=== PATIENT | male | born 1990 | race Caucasian/White ===

== ENCOUNTER 2016-09-18 11:22 | Inpatient (IN) | payer OTHER ==
[~2016-09-18] VITALS: Ht 177.8 cm; Wt 102.0 kg
[2016-09-18 11:26] VITALS: BP 147/75; PULSE 92; RESP 16; TEMP 99.6; O2SAT 97
[2016-09-18] MEDS ORDERED: SODIUM CHLORIDE 0.9% FLUSH 10 ML FLUSH IV FLUSH PRN ×2 (11:45→18:15)
--- NOTE | 2016-09-18 11:53 | PD ---
HPI Chief Complaint: GI Complaint Time Seen by Provider: 11:32 Travel History International Travel<30 days: No Contact w/Intl Traveler<30days: No Traveled to known affect area: No History of Present Illness HPI This patient complains of abdominal pain. Duration is 36 hours. Severity is moderate. Location is right lower quadrant. He denies fever or vomiting or diarrhea. He ate yesterday without change in symptoms. He has no alleviating factors. He has no abdominal surgeries PFSH Past Medical History ADHD: Yes Diminished Hearing: No Immunizations Current: No Tetanus Vaccination: Unknown Influenza Vaccination: No Social History Alcohol Use: Yes (3-4 days a week) Tobacco Use: No Substance Use: No Allergies-Medications (Allergen,Severity, Reaction): Coded Allergies: No Known Allergies (Unverified , 09/18/16) Reported Meds & Prescriptions Reported Meds & Active Scripts Active No Active Prescriptions or Reported Medications Review of Systems General / Constitutional: No: Fever Eyes: No: Visual changes HENT: No: Headaches Cardiovascular: No: Chest Pain or Discomfort Respiratory: No: Shortness of Breath Gastrointestinal: Positive: Abdominal Pain Genitourinary: No: Dysuria Musculoskeletal: No: Pain Skin: No Rash Neurologic: No: Weakness Psychiatric: No: Depression Endocrine: No: Polydipsia Hematologic/Lymphatic: No: Easy Bruising Physical Exam Narrative GENERAL: Well-nourished, well-developed patient with abdominal pain. SKIN: Focused skin assessment reveals no rash and nodules. Skin is Warm and dry. HEAD: Atraumatic. Normocephalic. EYES: Pupils equal and round. No scleral icterus. No injection or drainage. ENT: No nasal bleeding or discharge. Mucous membranes pink and moist. NECK: Trachea midline. No JVD. CARDIOVASCULAR: Regular rate and rhythm. No murmur appreciated. RESPIRATORY: No accessory muscle use. Clear to auscultation. Breath sounds equal bilaterally. GASTROINTESTINAL: Abdomen soft, right lower quadrant is tender but no rebound or guarding, nondistended. Hepatic and splenic margins not palpable. No inguinal hernia MUSCULOSKELETAL: No obvious deformities. No clubbing. No cyanosis. No edema. NEUROLOGICAL: Awake and alert. No obvious cranial nerve deficits. Motor grossly within normal limits. Normal speech. PSYCHIATRIC: Appropriate mood and affect; insight and judgment normal. Data Data Last Documented VS Vital Signs Date Time Temp Pulse Resp B/P Pulse Ox O2 Delivery O2 Flow Rate FiO2 5/8/17 11:26 99.6 92 16 147/75 97 Orders Basic Metabolic Panel (Bmp) (09/18/16 11:36) Complete Blood Count With Diff (09/18/16 11:36) Prothrombin Time / Inr (Pt) (09/18/16 11:36) Act Partial Throm Time (Ptt) (09/18/16 11:36) Urinalysis - C+S If Indicated (09/18/16 11:36) Ct Abd/Pel W Iv Contrast(Rout) (09/18/16 11:36) Iv Access Insert/Monitor (09/18/16 11:36) NPO (09/18/16 11:36) Sodium Chloride 0.9% Flush (Ns Flush) (09/18/16 11:45) Iohexol 350 Inj (Omnipaque 350 Inj) (09/18/16 12:00) Ampicillin-Sulbactam Inj (Unasyn Inj) (09/18/16 12:30) Labs Laboratory Tests Test 09/18/16 11:45 White Blood Count 14.6 TH/MM3 Red Blood Count 4.67 MIL/MM3 Hemoglobin 14.8 GM/DL Hematocrit 43.4 % Mean Corpuscular Volume 93.0 FL Mean Corpuscular Hemoglobin 31.8 PG Mean Corpuscular Hemoglobin 34.2 % Concent Red Cell Distribution Width 11.7 % Platelet Count 218 TH/MM3 Mean Platelet Volume 7.5 FL Neutrophils (%) (Auto) 74.6 % Lymphocytes (%) (Auto) 9.5 % Monocytes (%) (Auto) 6.6 % Eosinophils (%) (Auto) 1.7 % Basophils (%) (Auto) 7.6 % Neutrophils # (Auto) 10.9 TH/MM3 Lymphocytes # (Auto) 1.4 TH/MM3 Monocytes # (Auto) 1.0 TH/MM3 Eosinophils # (Auto) 0.2 TH/MM3 Basophils # (Auto) 1.1 TH/MM3 CBC Comment AUTO DIFF Differential Total Cells 100 Counted Neutrophils % (Manual) 87 % Lymphocytes % 4 % Monocytes % 8 % Eosinophils % 1 % Neutrophils # (Manual) 12.7 TH/MM3 Differential Comment FINAL DIFF MANUAL Prothrombin Time 11.0 SEC Prothromb Time International 1.0 RATIO Ratio Activated Partial 29.6 SEC Thromboplast Time Sodium Level 140 MEQ/L Potassium Level 3.6 MEQ/L Chloride Level 104 MEQ/L Carbon Dioxide Level 27.4 MEQ/L Anion Gap 9 MEQ/L Blood Urea Nitrogen 10 MG/DL Creatinine 1.20 MG/DL Estimat Glomerular Filtration 72 ML/MIN Rate Random Glucose 162 MG/DL Calcium Level 8.6 MG/DL MDM Medical Decision Making Medical Screen Exam Complete: Yes Emergency Medical Condition: Yes Medical Record Reviewed: Yes Differential Diagnosis Appendicitis, colitis, cholecystitis Narrative Course I have reviewed the patient's electronic medical record. IV placed CBC shows some leukocytosis of 14.6 thousand Metabolic profile is normal Coagulation studies are normal CT of abdomen and pelvis shows appendicitis with perforation but no abscess formation I gave him 3 g IV Unasyn I discussed with general surgeon Dr. De Oliveira who requests he be transferred up to same day surgery Diagnosis Primary Impression: Acute appendicitis with rupture Admitting Information Admitting Physician Requests: Admit Scripts No Active Prescriptions or Reported Meds Shivam Kelley MD September 18, 2016 11:53
[2016-09-18 11:55] LABS: AUTOMATED NEUTROPHIL # 10.9 TH/MM3 (1.8-7.7); BASOPHIL # 1.1 TH/MM3 (0-0.2); BASOPHIL % 7.6 % (0.0-2.0); EOSINOPHIL # 0.2 TH/MM3 (0-0.4); EOSINOPHIL % 1.7 % (0.0-4.0); HEMATOCRIT 43.4 % (39.0-51.0); LYMPH % 9.5 % (9.0-44.0); LYMPHOCYTE # 1.4 TH/MM3 (1.0-4.8); MEAN CORPUSCULAR HEMOGLOBIN 31.8 PG (27.0-34.0); MEAN CORPUSCULAR HGB CONC 34.2 % (32.0-36.0); MONO % 6.6 % (0.0-8.0); NEUT % 74.6 % (16.0-70.0); PLATELET COUNT 218 TH/MM3 (150-450); RED BLOOD COUNT 4.67 MIL/MM3 (4.50-5.90); RED CELL DISTRIBUTION WIDTH 11.7 % (11.6-17.2); WHITE BLOOD COUNT 14.6 TH/MM3 (4.0-11.0)
[2016-09-18 11:56] LABS: HEMO FLAGS AUTO DIFF
[2016-09-18] MEDS ORDERED: IOHEXOL 350 MG/ML 10 ML VIAL (for RAD DIAG) IV ONE (12:00)
[2016-09-18 12:07] LABS: POTASSIUM 3.6 MEQ/L (3.5-5.1)
[2016-09-18 12:10] LABS: BICARBONATE 27.4 MEQ/L (21.0-32.0)
[2016-09-18 12:11] LABS: APTT (PATIENT) 29.6 SEC (24.3-30.1)
[2016-09-18 12:16] LABS: EOSINOPHILS 1 % (0-4); NEUTROPHIL # MANUAL DIFF 12.7 TH/MM3 (1.8-7.7); POLYS (SEG NEUTROPHILS) 87 % (16-70); SCAN/DIFF FINAL DIFF MANUAL; WBC DIFF SAMPLE 100
--- NOTE | 2016-09-18 12:17 | RADHPO ---
EXAM DATE/TIME: 09/18/2016 11:46 [facility] COMPARISON: CT ABDOMEN & PELVIS W/O CONTRAST, October 27, 2015, 20:29. INDICATIONS : Upper abdominal pain radiating to right lower quadrant. IV CONTRAST: 95 cc Omnipaque 350 (iohexol) IV ORAL CONTRAST: No oral contrast ingested. RADIATION DOSE: 25.09 CTDIvol (mGy) MEDICAL HISTORY : None SURGICAL HISTORY : None. ENCOUNTER: Initial ACUITY: 2 days PAIN SCALE: 5/10 LOCATION: Right lower quadrant TECHNIQUE: Volumetric scanning of the abdomen and pelvis was performed. Using automated exposure control and ad justment of the mA and/or kV according to patient size, radiation dose was kept as low as reasonably achievable to obtain optimal diagnostic quality images. FINDINGS: The lung base is are clear. There is no pericardial effusion The liver, spleen and pancreas unremarkable. The adrenals and kidneys appear normal There are inflammatory changes in the right lower quadrant consistent with appendicitis with perforat ion. There is no defined abscess as yet. The pelvic contents are unremarkable. CONCLUSION: Right is consistent with appendicitis and perforation without abscess.. Олег Vargas MD FACR on September 18, 2016 at 12:13 Board Certified Radiologist. This report was verified electronically.
[2016-09-18] MEDS ORDERED: AMPICILLIN-SULBACTAM INJ 3 GM in SODIUM CHLORIDE 0.9% INJ 100 ML IV ONE (12:30)
[2016-09-18 13:09] VITALS: BP 140/70; PULSE 90; RESP 18; O2SAT 97
[2016-09-18] MEDS ORDERED: BUPIVACAINE/EPINEPHRINE 0.5% PF 30 ML VIAL ONE (13:24)
[2016-09-18] MEDS ORDERED: CHLORHEXIDINE GLUCONATE 2 % 1 PACK (2 CLOTHS) TOPICAL PRN (14:15)
[2016-09-18] MEDS ORDERED: METOPROLOL TARTRATE 25 MG TAB PO PRN (14:15)
[2016-09-18] MEDS ORDERED: POVIDONE IODINE 5% (ANTISEPSIS KIT) 4 APPLICATIONS EACH NARE PRN (14:15)
[2016-09-18] MEDS ORDERED: LACTATED RINGER'S 1000 ML IV PRN (14:15)
[2016-09-18] MEDS ORDERED: SODIUM CHLORID 0.9% 500 ML IV PRN (14:15)
[2016-09-18] MEDS ORDERED: INSULIN HUMAN REGULAR 1,000 UNITS/10 ML VIAL SQ PRN (14:15)
[2016-09-18] MEDS ORDERED: PROPOFOL 200 MG/20 ML AMP IV ONE (14:22)
[2016-09-18] MEDS ORDERED: ONDANSETRON HCL 4 MG/2 ML VIAL IV PUSH ONE (14:22)
[2016-09-18] MEDS ORDERED: MORPHINE SULFATE 4 MG/ML INJ ONE (15:43)
[2016-09-18] MEDS ORDERED: MORPHINE SULFATE 4 MG/ML INJ IV ONE (16:00)
[2016-09-18 16:13] LABS: BLOOD, URINE NEG (NEG); GLUCOSE,URINE NEG (NEG); KETONE, URINE NEG (NEG); METHOD OF COLLECTION CLEAN CATCH; NITRITE,URINE NEG (NEG); PH, URINE 6.5 (5.0-8.5); URINE COLOR YELLOW (YELLW/STRAW)
[2016-09-18] MEDS ORDERED: fentaNYL CITRATE 250 MCG/5 ML AMP ONE ×3 (16:20→16:57)
[2016-09-18 16:28] LABS: RBC, URINE 0-3 /hpf (0-3); WBC, URINE 0-2 /hpf (0-5)
[2016-09-18 16:29] LABS: COMMENT (UR) CULT NOT INDICATED; CULTURE IF INDICATED CULT NOT INDICATED
[2016-09-18] MEDS ORDERED: ACETAMINOPHEN 1000 MG/100 ML VIAL IV ONE (16:56)
[2016-09-18] MEDS ORDERED: SUGAMMADEX SODIUM 200 MG/2 ML VIAL IV PUSH ONE ×2 (16:57)
[2016-09-18] MEDS: SODIUM CHLOR 0.9% 1000 ML INJ 1,000 ML IV SCH (18:14)
[2016-09-18] MEDS ORDERED: DO NOT ADM ANY ANTICOAGULANT DRUGS PRN (18:15)
[2016-09-18] MEDS ORDERED: ONDANSETRON HCL 4 MG/2 ML VIAL IV PRN (18:15)
[2016-09-18] MEDS ORDERED: oxyCODONE/ACETAMINOPHEN 5 MG/325 MG TAB PO PRN (18:15)
[2016-09-18] MEDS ORDERED: Post-op Orders (for Pharmacy) MISC XX ONE (18:15)
[2016-09-18] MEDS ORDERED: MAGNESIUM HYDROXIDE SUSP 30 ML CUP PO PRN (18:15)
[2016-09-18] MEDS ORDERED: AMPICILLIN-SULBACTAM INJ 3 GM VIAL IM SCH (18:30)
[2016-09-18] MEDS ORDERED: *morphine SULFATE 8 MG/ML PERIprocedure ONLY ONE (18:36)
[2016-09-18] MEDS: AMPICILLIN/SULBAC 3 GM/NS 100 ML IV SCH ×2 (18:57)
[2016-09-18 20:00] VITALS: BP 115/57; PULSE 75; RESP 20; TEMP 97.8; O2SAT 96
[2016-09-18] MEDS ORDERED: SODIUM CHLORIDE 0.9% FLUSH 10 ML FLUSH IV FLUSH SCH (21:00)
[2016-09-19] VITALS: BP 118/60; PULSE 78; RESP 20; TEMP 98; O2SAT 97
[2016-09-19] MEDS: AMPICILLIN/SULBAC 3 GM/NS 100 ML IV SCH ×4 (01:29→08:00)
[2016-09-19] MEDS: oxyCODONE/ACETAMINOPHEN 5 MG/325 MG TAB PO PRN ×2 (01:32→06:01)
[2016-09-19 04:00] VITALS: BP 110/55; PULSE 61; RESP 20; TEMP 97.8; O2SAT 95
[2016-09-19] MEDS: SODIUM CHLOR 0.9% 1000 ML INJ 1,000 ML IV SCH (04:14)
[2016-09-19 05:39] LABS: AUTOMATED NEUTROPHIL # 12.3 TH/MM3 (1.8-7.7); BASOPHIL # 0.1 TH/MM3 (0-0.2); BASOPHIL % 0.4 % (0.0-2.0); EOSINOPHIL % 0.1 % (0.0-4.0); HEMATOCRIT 41.4 % (39.0-51.0); HEMO FLAGS DIFF FINAL; LYMPH % 5.6 % (9.0-44.0); LYMPHOCYTE # 0.8 TH/MM3 (1.0-4.8); MEAN CORPUSCULAR HEMOGLOBIN 31.3 PG (27.0-34.0); MEAN CORPUSCULAR HGB CONC 32.9 % (32.0-36.0); NEUT % 86.9 % (16.0-70.0); PLATELET COUNT 233 TH/MM3 (150-450); RED BLOOD COUNT 4.36 MIL/MM3 (4.50-5.90); RED CELL DISTRIBUTION WIDTH 12.6 % (11.6-17.2); WHITE BLOOD COUNT 14.2 TH/MM3 (4.0-11.0)
[2016-09-19 08:00] VITALS: BP 99/43; PULSE 67; RESP 18; TEMP 95.4; O2SAT 97
--- NOTE | 2016-09-19 11:13 | HHI.PR ---
Subjective Subjective Notes 26yo male POD#1 laparoscopic appendectomy. Sitting up in bed in no acute distress. Tolerating fluids Objective Vitals/I&O Vital Signs Date Time Temp Pulse Resp B/P Pulse Ox O2 Delivery O2 Flow Rate FiO2 09/19/16 08:00 95.4 67 18 99/43 97 09/19/16 04:00 97.8 61 20 110/55 95 09/19/16 00:00 98.0 78 20 118/60 97 09/18/16 20:00 97.8 75 20 115/57 96 09/18/16 18:44 97.8 81 14 106/63 98 Nasal Cannula 2 09/18/16 18:30 79 14 103/56 97 Nasal Cannula 2 09/18/16 18:15 82 14 98/57 97 Nasal Cannula 2 09/18/16 18:00 104 14 134/57 95 Nasal Cannula 2 09/18/16 17:53 97.8 99 14 139/65 97 Nasal Cannula 2 09/18/16 14:06 100.0 89 20 122/66 96 09/18/16 13:09 90 18 140/70 97 Room Air 09/18/16 11:26 99.6 92 16 147/75 97 Vital Signs Date Time Temp Pulse Resp B/P Pulse Ox O2 Delivery O2 Flow Rate FiO2 09/19/16 08:00 95.4 67 18 99/43 97 09/18/16 18:44 Nasal Cannula 2 Labs Laboratory Tests Test 09/18/16 09/18/16 09/19/16 11:45 13:05 04:27 White Blood Count 14.6 14.2 Red Blood Count 4.67 4.36 Hemoglobin 14.8 13.6 Hematocrit 43.4 41.4 Mean Corpuscular Volume 93.0 95.0 Mean Corpuscular Hemoglobin 31.8 31.3 Mean Corpuscular Hemoglobin 34.2 32.9 Concent Red Cell Distribution Width 11.7 12.6 Platelet Count 218 233 Mean Platelet Volume 7.5 8.1 Neutrophils (%) (Auto) 74.6 86.9 Lymphocytes (%) (Auto) 9.5 5.6 Monocytes (%) (Auto) 6.6 7.0 Eosinophils (%) (Auto) 1.7 0.1 Basophils (%) (Auto) 7.6 0.4 Neutrophils # (Auto) 10.9 12.3 Lymphocytes # (Auto) 1.4 0.8 Monocytes # (Auto) 1.0 1.0 Eosinophils # (Auto) 0.2 0.0 Basophils # (Auto) 1.1 0.1 CBC Comment AUTO DIFF DIFF FINAL Differential Total Cells 100 Counted Neutrophils % (Manual) 87 Lymphocytes % 4 Monocytes % 8 Eosinophils % 1 Neutrophils # (Manual) 12.7 Differential Comment FINAL DIFF MANUAL Prothrombin Time 11.0 Prothromb Time International 1.0 Ratio Activated Partial 29.6 Thromboplast Time Sodium Level 140 Potassium Level 3.6 Chloride Level 104 Carbon Dioxide Level 27.4 Anion Gap 9 Blood Urea Nitrogen 10 Creatinine 1.20 Estimat Glomerular Filtration 72 Rate Random Glucose 162 Calcium Level 8.6 Urine Collection Type CLEAN CATCH Urine Color YELLOW Urine Turbidity CLEAR Urine pH 6.5 Urine Specific [place] Cbc Base GREATER THAN 1.030 Urine Protein NEG Urine Glucose (UA) NEG Urine Ketones NEG Urine Occult Blood NEG Urine Nitrite NEG Urine Bilirubin NEGATIVE Urine Leukocyte Esterase NEGATIVE Urine RBC 0-3 Urine WBC 0-2 Microscopic Urinalysis Comment CULT NOT INDICATED Radiology Last Impressions Abdomen/Pelvis CT 09/18/16 1136 Signed Impressions: Service Date/Time: Sunday, September 18, 2016 11:46 - CONCLUSION: Right is consistent with appendicitis and perforation without abscess.. Олег Vargas MD FACR Cardiovascular: Regular Lungs: Clear Abdomen: Post-op tenderness Extremities: Perfused Wound Wound : Wound Location: Abdomen Appearance: Clean & Dry A/P Assessment and Plan Continue with frequent ambulation Advance diet as tolerated Pending cecum bx will start Augmentin 500mg TID x 10 days The exam, history, and the medical decision-making described in the above note were completed with the assistance of the mid-level provider. I reviewed and agree with the findings presented. I attest that I had a [id number] encounter with the patient on the same day, and personally performed and documented my assessment and findings in the medical record. Discharge Planning D/C home today Follow up with Dr. Apple on Sunday Sanchez Hickey September 19, 2016 11:13 Lenny Apple MD September 27, 2016 09:29
[2016-09-19] MEDS ORDERED: AUGM500T7 PO (11:17)
[2016-09-19] MEDS ORDERED: NORC5TAB PO (11:59)
[2016-09-19 12:00] VITALS: BP 121/61; PULSE 74; RESP 18; TEMP 98.1; O2SAT 96
--- NOTE | 2016-09-20 08:06 | MP ---
cc: LENNY APPLE DATE OF 1990 DATE OF OPERATION 09/18/2016 PREOPERATIVE DIAGNOSIS Acute appendicitis. POSTOPERATIVE DIAGNOSIS Acute appendicitis, path pending. PROCEDURE Laparoscopic appendectomy. SURGEON Lenny Apple MD ANESTHESIA General endotracheal anesthesia. ESTIMATED BLOOD LOSS Scant FINDINGS This patient's appendix was found in the retrocecal position, dense inflammation around the cecum. The base appeared to be without inflammation. No obvious signs of perforation of the appendix, so unsure whether inflammation came primarily from the appendix or the cecum. It was decided to remove the appendix as the base was without inflammatory changes. SPECIMEN Appendix. COMPLICATIONS None. OPERATION The patient was brought to the operating room and placed on the operating table in supine position. Bilateral sequential inflation devices were placed on the lower extremities, general anesthesia instituted, Miranda catheter placed, antibiotics initiated. The abdomen was prepped and draped sterilely. The umbilical region was anesthetized with 0.25% Marcaine with epinephrine. A skin incision was made, a 5-mm Optiview port placed under direct vision and pneumoperitoneum created. Under direct vision a 5-mm suprapubic port and a 12-mm infraumbilical midline port was placed. Prior to placement of all ports, the skin and peritoneum were anesthetized with 0.25% Marcaine with epinephrine. The patient is placed in reverse Trendelenburg position right side up. The appendix was visualized and brought into view. The mesoappendix was using the harmonic dividing the appendiceal vessel. The appendix was mobilized to its base. It was amputated at its base using an endovascular stapler. There was some bleeding at the mesentery. This was controlled with hemoclips. The appendix was removed from the peritoneal cavity in the Endopouch through the 10-mm port site. The pelvis was irrigated with saline, the staple line inspected and was intact. The pneumoperitoneum was then released. All ports were removed. The fascia at the 12-mm port site approximated with a 0 Vicryl suture, all skin edges closed with 4-0 Monocryl. The abdominal wall was cleaned and a sterile dressing placed. The patient was awakened and taken to the recovery room stable. MD LUMA Renee/IKER /6:27 PM /8:04 AM
--- NOTE | 2016-09-26 16:03 | MH ---
cc: JESSICA SCHWARTZ DATE OF ADMISSION: 09/18/2016 ADMITTING DIAGNOSIS: DATE OF : 1990 HISTORY This is a patient who began experiencing abdominal pain approximately 36 hours prior to admission. The pain was located in the lower abdomen on the right. He had a CT scan of his abdomen and pelvis which revealed findings of appendicitis. Surgical admission requested. The patient has a medical history significant for ADHD. PAST SURGICAL HISTORY: Negative. SOCIAL HISTORY: He does not smoke. He drinks alcohol occasionally. MEDICATIONS: No chronic medications. FAMILY HISTORY: Noncontributory. REVIEW OF SYSTEMS: Significant for above. All 10 point review is negative. PHYSICAL EXAMINATION: The patient is laying on a stretcher in no acute distress. HEENT: Pupils are equal and reactive. Trachea is midline. NECK: Without JVD. Respirations clear. CARDIOVASCULAR: Regular. GASTROINTESTINAL: Soft, positive tenderness in the right lower quadrant. MUSCULOSKELETAL: No deformities. NEUROLOGIC: Nonfocal. LABORATORY DATA: White blood cell count is 14.6. RADIOLOGIC IMAGING: Revealed inflammatory changes in the right lower quadrant. ASSESSMENT: The patient is a 26 year-old male with appendicitis. PLAN: The plan is to take him to the operating room for laparoscopic appendectomy. The risks and benefits explained but not be exclusive to infection, bleeding, bowel injury, bladder injury, ureter injury. Technical aspects explained as well as pre and postoperative course. Patient verbalized understanding. Consent was obtained. MD LUMA Renee/EDE /2:58 PM /3:42 PM
== END 2016-09-19 13:56 | disposition home or self-care (01) | DRG 343 ==
LOC: HOR 11:22 → HRAD 13:13 → HSDC 13:46 → HSDI 18:19 → N07A 18:55
PROVIDERS: ADMIT Surgery; ATTEND Surgery
PROC: 0DTJ4ZZ Resection of Appendix, Percutaneous Endoscopic Approach (ICD-10-PCS; principal; 2016-09-18 16:51)
DX: K35.80 Unspecified acute appendicitis (principal)
CPT/HCPCS: 74177; 80048; 81001; 85007; 85025; 85027; 85610; 85730; 88304; 94150; 96365; J0131; J0295; J2270; J2405; J3010; J7030; J7120; Q9967